=== PATIENT | female | born 1940 | race Caucasian/White ===

== ENCOUNTER 2019-01-21 05:50 | Day surgery (SDC) | payer OTHER ==
[~2019-01-21] VITALS: Ht 157.5 cm; Wt 68.0 kg
[~2019-01-21 05:50] MED LIST: ALLERGY10 MG PO; ASPI81CH PO; CALCAVITD PO; CEPH500 PO; CHOL10002 PO; CO Q10200 MG PO; Cleocin HCl150 MG PO; FISH1000 PO; LEVSOD50 PO; LIPITOR; LOSA25 PO; Percocet 5-3251 EACH PO; SIMV40 PO; THYROID
--- NOTE | 2019-01-21 11:35 | NUR ---
PT VERBALIZED UNDERSTANDING OF D/C INSTRUCTIONS. TR BAND REMOVED FROM RIGHT WRIST WITH RED CLOTH DOT DRESSING IN PLACE. SITE APPEARS STABLE, NO ACTIVE BLEEDING, OOZING, OR PAIN NOTED. ARM BOARD AND SLING ON RIGHT ARM FOR SUPPORT. PAPERWORK PROVIDED TO PATIENT IN [facility]. PT ASSIST HER WITH GETTING DRESSED. HE IS GOING TO DRIVE PT HOME. PT DENIES NEED FOR WHEELCHAIR RIDE OUT TO VEHICLE, REPORTS WANTING TO WALK, STEADY GAIT WITH AMBULATION. PREVIOUSLY TO RESTROOM WITH UNMEASURED VOID. NADN AT TIME OF DISPO. ENCOURAGED FOLLOW UP SCHEDULED. IV REMOVED FROM [facility] WITH CATH INTACT. PRESSURE DRESSING APPLIED.
== END 2019-01-21 11:30 | disposition home or self-care (01) ==
LOC: MHTC 05:50
DX: R94.39 Abnormal result of other cardiovascular function study (principal); I25.10 Atherosclerotic heart disease of native coronary artery without angina pectoris; E78.00 Pure hypercholesterolemia, unspecified; E03.9 Hypothyroidism, unspecified; I70.0 Atherosclerosis of aorta; Z88.4 Allergy status to anesthetic agent; Z88.2 Allergy status to sulfonamides; Z79.899 Other long term (current) drug therapy
CPT/HCPCS: 93454; 99152; 99153; C1769; C1894; J1644; J2250; J3010; J7030; Q9967

== ENCOUNTER → 2020-11-14 | Outpatient (CLI) | payer OTHER ==
[2020-11-16 16:24] LABS: CORONAVIRUS (COVID19) CSH-NRL Negative (Negative)
== END | disposition home or self-care (01) ==
LOC: LAB SHORT 08:29 → LAB 08:29
PROVIDERS: Internal Medicine
DX: Z20.822 Contact with and (suspected) exposure to COVID-19 (principal)
CPT/HCPCS: U0003

== ENCOUNTER → 2022-02-28 | Outpatient (CLI) | payer OTHER ==
[2022-02-28 11:40] LABS: BASOPHILS ABSOLUTE AUTO 0.02 K/mm3 (0.00-0.23); BASOPHILS PERCENT AUTO 0 % (0-2); EOSINOPHILS ABSOLUTE AUTO 0.14 K/mm3 (0.00-0.68); EOSINOPHILS PERCENT AUTO 2 % (0-6); Hematocrit 40.8 % (33.0-51.0); Hemoglobin 14.2 g/dL (11.5-16.0); IMMATURE GRAN ABSOLUTE AUTO 0.04 K/mm3 (0.00-0.10); IMMATURE GRAN PERCENT AUTO 1 % (0-1); LYMPHOCYTES PERCENT AUTO 23 % (21-46); MONOCYTES ABSOLUTE AUTO 0.62 K/mm3 (0.16-1.47); MONOCYTES PERCENT AUTO 8 % (4-13); Mean Corpuscular HGB 31.8 pg (26.0-34.0); Mean Corpuscular HGB Conc 34.8 g/dL (31.5-36.5); Mean Corpuscular Volume 92 fL (80-100); Mean Platelet Volume 9.5 fL (9.1-12.4); NEUTROPHILS PERCENT AUTO 66 % (41-73); Platelet Count 170 K/mm3 (150-400); RDW Coefficient Variation 12.8 % (11.7-14.2); RDW Standard Deviation 42.5 fL (35.1-46.3); Red Blood Cell Count 4.46 M/mm3 (3.80-5.20); White Blood Cell Count 7.72 K/mm3 (4.00-11.30)
[2022-02-28 11:45] LABS: Calcium, Blood 9.9 mg/dL (8.5-10.1); Creatinine, Blood 1.25 mg/dL (0.40-1.00); Potassium, Blood 3.7 mmol/L (3.5-5.5)
== END | disposition home or self-care (01) ==
LOC: LAB SHORT 11:32
PROVIDERS: Physician Assistant Surgical
DX: R07.9 Chest pain, unspecified (principal)
CPT/HCPCS: 80048; 83880; 84484; 85025

== ENCOUNTER → 2022-04-08 | Outpatient (CLI) | payer OTHER ==
[2022-04-08 13:56] LABS: Stool Occult Bld Immuno 1 Negative (NEGATIVE)
== END | disposition home or self-care (01) ==
LOC: LAB SHORT 09:50 → LAB 09:50
PROVIDERS: Internal Medicine
DX: Z12.11 Encounter for screening for malignant neoplasm of colon (principal)
CPT/HCPCS: 82274

== ENCOUNTER → 2024-09-15 | Outpatient (CLI) | payer OTHER ==
[2024-09-15 14:14] LABS: Microalb/Creat Ratio UR, Rand 11.504 mg/g (0.000-30.000)
== END | disposition home or self-care (01) ==
LOC: LAB 09:57 → LAB SHORT 09:57
PROVIDERS: Internal Medicine
DX: E11.9 Type 2 diabetes mellitus without complications (principal)
CPT/HCPCS: 82043; 82570